=== PATIENT | female | born 1935 | race Caucasian/White ===

== ENCOUNTER 2018-01-16 11:08 | Emergency (ER) | payer MEDICARE, BC ==
[2018-01-16] MEDS ORDERED: Bacitracin Oint 1 GM U/D Packet TOP ONE (11:36)
[2018-01-16] MEDS ORDERED: Diphtheria/Tetanus Toxoids,Adult (Td) 0.5 ML Syringe IM ONE (11:36)
[2018-01-16] MEDS ORDERED: Lidocaine 1% with EPINEPHrine 1:100,000 20 ML MDV INJECT ONE (11:37)
[2018-01-16] MEDS ORDERED: Lidocaine 1% with EPINEPHrine 1:100,000 20 ML MDV ONE (11:39)
--- NOTE | 2018-01-16 11:46 | EDM.PDOC ---
ED HPI GENERAL MEDICAL PROBLEM - General Chief Complaint: Head Injury Stated Complaint: LACERATION TO FOREHEAD Time Seen by Provider: 01/16/18 11:28 - History of Present Illness INITIAL COMMENTS - FREE TEXT/NARRATIVE: HISTORY AND PHYSICAL: History of present illness: The patient is an 82-year-old female who follows in our family practice clinic with Dr. Ayala and has a history of hypertension hypothyroidism and hypercholesterolemia who presents via EMS after she tripped on a curb while trying to go to her dentist today. According to the patient she drove to the dentist and was walking into the dentist when she tripped and fell landing on bilateral knees and her face. She cannot pass out or blackout and initially wanted to continue going to the dentist when she was seen by a bystander who felt she should be evaluated. The patient is unsure of her last tetanus shot and says that she currently has no pain whatsoever even at the lacerations on her face and extremities. The patient denies any knee pain hip pain neck or back pain and has no nausea or abdominal pain chest pain or shortness of breath. She said prior to these events she was in her usual state of health with no systemic complaints of fever chills nausea vomiting chest pain abdominal pain diarrhea or urinary tract symptoms. Review of systems: As per history of present illness and below otherwise all systems reviewed and negative. Past medical history: As per history of present illness and as reviewed below otherwise noncontributory. Surgical history: As per history of present illness and as reviewed below otherwise noncontributory. Social history: No reported history of drug or alcohol abuse. Family history: As per history of present illness and as reviewed below otherwise noncontributory. Physical exam: Gen.: Well-developed thin female who is nontoxic and vital signs have been reviewed by me. Patient moves easily and is alert talkative and interactive. HEENT: Atraumatic except for a superficial abrasion seen on the left forehead and a 3.0 cm laceration above the left eyebrow,, normocephalic, pupils reactive , EOMs intact negative for conjunctival pallor or scleral icterus, mucous membranes moist, throat clear, neck supple, nontender, trachea midline. There are no facial bone deformities tenderness defects or crepitus and there is no midline step-offs tenderness defects of the cervical spine Lungs: Clear to auscultation, breath sounds equal bilaterally, chest nontender. Heart: S1S2, regular rate and rhythm no overt murmurs Abdomen: Soft, nondistended, nontender. Negative for masses or hepatosplenomegaly. Negative for costovertebral tenderness. Pelvis: Stable nontender. There is no lateral hip tenderness Genitourinary: Deferred. Rectal: Deferred. Extremities: The patient has full range of motion of all extremities without any bony defects deformities or tenderness. At the left knee there is a 1.5 x 1.1 area of superficial skin loss/abrasion without bony deformity defects soft tissue swelling or effusion. At the right knee there is a jagged irregular 3.5 cm laceration which extends to the deep subcutaneous tissue. The patient has full range of motion of the right knee and there is no distal or proximal defects deformities or tenderness appreciated. At the left elbow there is a 4.5 x 1.0 oval area of abrasion seen without laceration and there is no deformity tenderness or defects of the elbow or forearm bony architecture. The legs are negative for cords or calf pain. Neurovascular unremarkable. Neuro: Awake, alert, oriented. Cranial nerves II through XII unremarkable. Cerebellum unremarkable. Motor and sensory unremarkable throughout. Exam nonfocal. Back: There are no midline step-offs tenderness defects of the thoracic or lumbar spine and no posterior pelvis or rib tenderness. Diagnostics: CBC CMP UA CT scan of the head EKG Therapeutics: Cleansing of all wounds, bacitracin and local care to the left elbow and left knee where there is only abrasion/skin loss, laceration repair of the right knee and the eyebrow area, tetanus shot, Keflex Procedure note: After all wounds were cleansed by nursing the area at the left eyebrow was prepped and draped in sterile fashion and 1% lidocaine with epinephrine was infused for anesthesia. The wound was explored and no foreign bodies were appreciated. The skin edges were reapproximated using simple interrupted sutures for a total number of #4 sutures of 6-0 nylon. The right knee was prepped and draped in sterile fashion and 1% lidocaine with epinephrine was infused for anesthesia. The wound was explored and no foreign bodies were appreciated and the skin edges were reapproximated as best as possible using simple interrupted sutures for a total number of #5 of 4-0 nylon . The patient is aware of tension in the area of the right knee and dressings were applied to these wounds. The patient was also made aware that the wound is not completely reapproximated on the knee and will require thorough wound care. There were no complications and the patient tolerated the procedure well. The procedures where performed by Malaika York NP. Due to the irregularity and depth of the right knee laceration with the patient' s lack of muscle mass and soft tissue coverage I will give her antibiotics, Keflex. Patient is also aware of her testing results including a BUN of 22 and advised her to drink more fluids. Impression: Simple fall with multiple lacerations of extremities and face and contusions of extremities Definitive disposition and diagnosis as appropriate pending reevaluation and review of above. - Related Data Allergies Allergy/AdvReac Type Severity Reaction Status Date / Time phenytoin sodium Allergy Unknown Verified 03/30/14 08:14 [From Dilantin] phenytoin sodium extended Allergy Unknown Verified 03/30/14 08:14 [From Dilantin] Home Meds: Home Meds Estradiol [Estradiol] 1 mg PO DAILY 01/16/18 [History] Hydrochlorothiazide 25 mg PO DAILY 01/16/18 [History] Levothyroxine 25 mcg PO ACBREAKFAST 01/16/18 [History] Potassium Chloride 20 meq PO DAILY 01/16/18 [History] ED ROS GENERAL - Review of Systems Review Of Systems: ROS reveals no pertinent complaints other than HPI. ED EXAM, HEAD INJURY - Physical Exam Exam: See Below (See dictation) Course - Vital Signs Last Recorded V/S: Last Vital Signs Temp 37.0 C 01/16/18 11:29 Pulse 76 01/16/18 11:29 Resp 20 01/16/18 11:29 BP 152/70 H 01/16/18 11:29 Pulse Ox 97 01/16/18 11:29 - Orders/Labs/Meds Orders: Active Orders 24 hr Category Date Time Status Communication Order [RC] STAT Care 01/16/18 12:49 Active EKG Documentation Completion [RC] STAT Care 01/16/18 11:37 Active Vaccines to be Administered [RC] PER UNIT ROUTINE Care 01/16/18 11:36 Active Labs: Laboratory Tests 01/16/18 01/16/18 01/16/18 Range/Units 11:48 11:48 12:53 WBC 6.61 (4.0-11.0) K/uL RBC 4.32 (4.30-5.90) M/uL Hgb 11.9 L (12.0-16.0) g/dL Hct 37.1 (36.0-46.0) % MCV 85.9 (80.0-98.0) fL MCH 27.5 (27.0-32.0) pg MCHC 32.1 (31.0-37.0) g/dL RDW Std Deviation 44.6 (28.0-62.0) fl RDW Coeff of Sondra 14 (11.0-15.0) % Plt Count 204 (150-400) K/uL MPV 10.10 (7.40-12.00) fL Neut % (Auto) 59.4 (48.0-80.0) % Lymph % (Auto) 25.4 (16.0-40.0) % [place]manuel % (Auto) 12.6 (0.0-15.0) % Eos % (Auto) 1.8 (0.0-7.0) % Baso % (Auto) 0.8 (0.0-1.5) % Neut # (Auto) 3.9 (1.4-5.7) K/uL Lymph # (Auto) 1.7 (0.6-2.4) K/uL [place] # (Auto) 0.8 (0.0-0.8) K/uL Eos # (Auto) 0.1 (0.0-0.7) K/uL Baso # (Auto) 0.1 (0.0-0.1) K/uL Nucleated RBC % 0.0 /100WBC Nucleated RBCs # 0 K/uL Sodium 143 (136-145) mmol/L Potassium 3.9 (3.5-5.1) mmol/L Chloride 106 (98-107) mmol/L Carbon Dioxide 31.0 (21.0-32.0) mmol/L BUN 22 H (7.0-18.0) mg/dL Creatinine 0.9 (0.6-1.0) mg/dL Est Cr Clr Drug Dosing TNP Estimated GFR (MDRD) 59.7 ml/min Glucose 73 L (74-106) mg/dL Calcium 9.0 (8.5-10.1) mg/dL Total Bilirubin 0.4 (0.2-1.0) mg/dL AST 23 (15-37) U/L ALT 26 (14-63) U/L Alkaline Phosphatase 52 (46-116) U/L Total Protein 6.4 (6.4-8.2) g/dL Albumin 3.3 L (3.4-5.0) g/dL Globulin 3.1 (2.0-3.5) g/dL Albumin/Globulin Ratio 1.1 L (1.3-2.8) Urine Color YELLOW Urine Appearance CLEAR Urine pH 5.5 (5.0-8.0) Ur Specific [place] 1.010 (1.001-1.035) Urine Protein NEGATIVE (NEGATIVE) mg/dL Urine Glucose (UA) NEGATIVE (NEGATIVE) mg/dL Urine Ketones NEGATIVE (NEGATIVE) mg/dL Urine Occult Blood NEGATIVE (NEGATIVE) Urine Nitrite NEGATIVE (NEGATIVE) Urine Bilirubin NEGATIVE (NEGATIVE) Urine Urobilinogen 0.2 (<2.0) EU/dL Ur Leukocyte Esterase NEGATIVE (NEGATIVE) Urine RBC 0-1 (0-2/HPF) Urine WBC 0-1 (0-5/HPF) Ur Epithelial Cells RARE (NONE-FEW) Urine Bacteria RARE (NEGATIVE) Meds: Medications Discontinued Medications Generic Name Dose Route Start Last Admin Trade Name Freq PRN Reason Stop Dose Admin Bacitracin 6 dose 01/16/18 11:36 01/16/18 11:51 Bacitracin Oint 1 Gm TOP 01/16/18 11:37 6 dose ONETIME ONE Administration Cephalexin 500 mg 01/16/18 11:50 01/16/18 12:01 Keflex PO 01/16/18 11:51 500 mg ONETIME ONE Administration Lidocaine/Epinephrine 20 ml 01/16/18 11:37 01/16/18 13:03 Xylocaine 1% With Epinephrine 1:100,000 INJECT 01/16/18 11:38 20 ml ONETIME ONE Administration Lidocaine/Epinephrine Confirm 01/16/18 11:39 01/16/18 11:52 Xylocaine 1% With Epinephrine 1:100,000 Administered 01/16/18 11:40 Not Given Dose 20 ml .ROUTE .STK-MED ONE Tetanus/Diphtheria Toxoids 0.5 ml 01/16/18 11:36 01/16/18 11:51 Tenivac IM 01/16/18 11:37 0.5 ml .ONCE ONE Administration Departure - Departure Time of Disposition: 13:45 Disposition: Home, Self-Care 01 Condition: Good Clinical Impression: Abrasion, multiple sites Fall Qualifiers: Encounter type: initial encounter Qualified Code(s): W19.XXXA - Unspecified fall, initial encounter Facial laceration Qualifiers: Encounter type: initial encounter Qualified Code(s): S01.81XA - Laceration without foreign body of other part of head, initial encounter Laceration of right knee Qualifiers: Encounter type: initial encounter Qualified Code(s): S81.011A - Laceration without foreign body, right knee, initial encounter - Discharge Information Forms: ED Department Discharge Additional Instructions: The following information is given to patients seen in the emergency department who are being discharged to home. This information is to outline your options for follow-up care. We provide all patients seen in our emergency department with a follow-up referral. The need for follow-up, as well as the timing and circumstances, are variable depending upon the specifics of your emergency department visit. If you don't have a primary care physician on staff, we will provide you with a referral. We always advise you to contact your personal physician following an emergency department visit to inform them of the circumstance of the visit and for follow-up with them and/or the need for any referrals to a consulting specialist. The emergency department will also refer you to a specialist when appropriate. This referral assures that you have the opportunity for followup care with a specialist. All of these measure are taken in an effort to provide you with optimal care, which includes your followup. Under all circumstances we always encourage you to contact your private physician who remains a resource for coordinating your care. When calling for followup care, please make the office aware that this follow-up is from your recent emergency room visit. If for any reason you are refused follow-up, please contact the [facility] emergency department at and ask to speak to the emergency department charge nurse. [facility] Primary care- Internal Medicine and Family [address] [address] Use [id number] Tylenol for aches and pains and apply ice to areas of soreness. Please cleanse all the wounds with mild soap and water pat dry and apply bacitracin or Neosporin. Please do not use peroxide or alcohol and any of the wounds. The wounds that have sutures in them will need suture removal with the facial laceration at 7 days and the knee laceration at 10-14 days. The sutures can be removed either here in the emergency department or with your provider in the clinic. These try to reduce stress on the knee wound by avoiding excessive walking and activities and bending of the knee. Return to ER sooner as needed and as discussed. Please push more fluids as we discussed - My Orders Last 24 Hours: My Active Orders 01/16/18 11:36 Vaccines to be Administered [RC] PER UNIT ROUTINE 01/16/18 11:37 EKG Documentation Completion [RC] STAT 01/16/18 12:49 Communication Order [RC] STAT - Assessment/Plan Last 24 Hours: My Active Orders 01/16/18 11:36 Vaccines to be Administered [RC] PER UNIT ROUTINE 01/16/18 11:37 EKG Documentation Completion [RC] STAT 01/16/18 12:49 Communication Order [RC] STAT
[2018-01-16] MEDS ORDERED: Cephalexin 500 MG Cap PO ONE (11:50)
[2018-01-16 12:23] LABS: CHLORIDE,CL 106 mmol/L (98-107); SODIUM,NA 143 mmol/L (136-145)
--- NOTE | 2018-01-16 13:18 | CT ---
EXAMINATION: Non contrast CT head. Coronal and sagittal reformats. HISTORY: Pain FINDINGS: No evidence of intra or extra axial hemorrhage, mass, midline shift, hydrocephalus or edema. Mild to moderate generalized atrophy. Mild subcortical and periventricular white matter hypodensities are no christian. No hypoattenuation changes in the major vascular territories to suggest acute infarct. No abnormal intracranial calcifications are detected. No evidence of substantial vascular calcificat ions. Paranasal sinuses and mastoid air cells are well aerated without substantial findings. Orbits and gl obes are symmetric. Pituitary fossa appears unremarkable. Right frontal craniotomy changes are noted. No evidence of skull fracture. IMPRESSION: 1. No acute intracranial findings. 2. Mild to moderate generalized atrophy with mild small vessel ischemic changes.
== END 2018-01-16 14:05 | disposition home or self-care (01) ==
LOC: MW.ED 11:08
DX: S01.81XA Laceration without foreign body of other part of head, initial encounter (principal); S81.011A Laceration without foreign body, right knee, initial encounter; S80.212A Abrasion, left knee, initial encounter; S50.312A Abrasion of left elbow, initial encounter; E03.9 Hypothyroidism, unspecified; I10 Essential (primary) hypertension; E78.00 Pure hypercholesterolemia, unspecified; Z88.8 Allergy status to other drugs, medicaments and biological substances; Z23 Encounter for immunization; Z79.899 Other long term (current) drug therapy; W01.0XXA Fall on same level from slipping, tripping and stumbling without subsequent striking against object, initial encounter
CPT/HCPCS: 12002; 12013; 36415; 70450; 80053; 81001; 85025; 90471; 90714; 93005; 99284; A9270

== ENCOUNTER 2019-02-21 14:37 | Emergency (ER) | payer MEDICARE, BC ==
[2019-02-21] MEDS ORDERED: Sodium Chloride 0.9% 1,000 ML IV ONE (15:52)
[2019-02-21] MEDS ORDERED: Sodium Chloride 0.9% 10 ML Syringe FLUSH PRN (15:53)
[2019-02-21] MEDS ORDERED: Sodium Chloride 0.9% 2.5 ML Syringe FLUSH PRN (15:53)
--- NOTE | 2019-02-21 16:25 | EDM.PDOC ---
ED HPI GENERAL MEDICAL PROBLEM - General Chief Complaint: Respiratory Problem Stated Complaint: UPPER RESP. INFECTION Time Seen by Provider: 02/21/19 15:53 Source of Information: Reports: Patient History Limitations: Reports: No Limitations - History of Present Illness INITIAL COMMENTS - FREE TEXT/NARRATIVE: History of present illness: []Patient started having a dry cough, fevers 101 yesterday. Denies any chest pain, nausea, vomiting or abdominal pain. Review of systems: As per history of present illness and below otherwise all systems reviewed and negative. Past medical history: As per history of present illness and as reviewed below otherwise noncontributory. Surgical history: As per history of present illness and as reviewed below otherwise noncontributory. Social history: No reported history of drug or alcohol abuse. Family history: As per history of present illness and as reviewed below otherwise noncontributory. Physical exam: General: Well developed, well nourished in NAD HEENT: Atraumatic, normocephalic, pupils reactive, negative for conjunctival pallor or scleral icterus, mucous membranes moist, throat clear, neck supple, nontender, trachea midline. Lungs: Clear to auscultation, breath sounds equal bilaterally, chest nontender. Heart: S1S2, regular, negative for clicks, rubs, or JVD. Abdomen: NABS, Soft, nondistended, nontender. Negative for masses or hepatosplenomegaly. Negative for costovertebral tenderness. Pelvis: Stable nontender. Genitourinary: Deferred. Rectal: Deferred. Extremities: Atraumatic, negative for cords or calf pain. Neurovascular unremarkable. Neuro: Awake, alert, oriented. Cranial nerves II through XII unremarkable. Cerebellum unremarkable. Motor and sensory unremarkable throughout. Exam nonfocal. Skin:warm and dry Diagnostics: CBC, blood culture, chemistry, chest x-ray all negative Therapeutics: IV hydrated ED Course: Improved Impression: Acute bronchitis Prescriptions: Zithromax Plan: Take meds as directed, follow up with your primary care physician, return to ER if symptoms worsen or change. Definitive disposition and diagnosis as appropriate pending reevaluation and review of above. Throat Pain Score (Numeric/FACES): 3 - Related Data Allergies Allergy/AdvReac Type Severity Reaction Status Date / Time phenytoin sodium Allergy Unknown Verified 03/30/14 08:14 [From Dilantin] phenytoin sodium extended Allergy Unknown Verified 03/30/14 08:14 [From Dilantin] Home Meds: Home Meds Levothyroxine 25 mcg PO ACBREAKFAST 01/16/18 [History] Potassium Chloride 20 meq PO DAILY 01/16/18 [History] hydroCHLOROthiazide [Hydrochlorothiazide] 25 mg PO DAILY 01/16/18 [History] Azithromycin [Zithromax] 250 mg PO DAILY #6 tab 02/21/19 [Rx] Past Medical History Cardiovascular History: Reports: High Cholesterol, Hypertension - Infectious Disease History Infectious Disease History: Reports: Chicken Pox, Measles, Mumps Social & Family History - Family History Family Medical History: Noncontributory - Tobacco Use Smoking Status *Q: Never Smoker - Caffeine Use Caffeine Use: Reports: Coffee, Soda, Tea - Recreational Drug Use Recreational Drug Use: No ED ROS GENERAL - Review of Systems Review Of Systems: ROS reveals no pertinent complaints other than HPI. ED EXAM, GENERAL - Physical Exam Exam: See Below (See history of present illness) Course - Vital Signs Last Recorded V/S: Last Vital Signs Temp 98.9 F 02/21/19 14:54 Pulse 89 02/21/19 14:54 Resp 17 02/21/19 14:54 BP 135/91 H 02/21/19 14:54 Pulse Ox 96 02/21/19 14:54 - Orders/Labs/Meds Orders: Active Orders 24 hr Category Date Time Status CULTURE BLOOD [BC] Stat Lab 02/21/19 16:10 Received CULTURE BLOOD [BC] Stat Lab 02/21/19 16:25 Received INFLUENZA A+B AG SCREEN [RM] Stat Lab 02/21/19 16:27 Ordered Sodium Chloride 0.9% [Saline Flush] Med 02/21/19 15:53 Active 10 ml FLUSH ASDIRECTED PRN Sodium Chloride 0.9% [Saline Flush] Med 02/21/19 15:53 Active 2.5 ml FLUSH ASDIRECTED PRN Blood Culture x2 Reflex Set [OM.PC] Stat Oth 02/21/19 15:52 Ordered Saline Lock Insert [OM.PC] Stat Oth 02/21/19 15:52 Ordered Medication Orders Sodium Chloride (Saline Flush) 10 ml FLUSH ASDIRECTED PRN PRN Reason: Keep Vein Open Sodium Chloride (Saline Flush) 2.5 ml FLUSH ASDIRECTED PRN PRN Reason: Keep Vein Open Labs: Laboratory Tests 02/21/19 02/21/19 02/21/19 Range/Units 16:10 16:10 16:10 WBC 8.11 (4.0-11.0) K/uL RBC 4.11 L (4.30-5.90) M/uL Hgb 11.5 L (12.0-16.0) g/dL Hct 34.9 L (36.0-46.0) % MCV 84.9 (80.0-98.0) fL MCH 28.0 (27.0-32.0) pg MCHC 33.0 (31.0-37.0) g/dL RDW Std Deviation 44.5 (28.0-62.0) fl RDW Coeff of Sondra 14 (11.0-15.0) % Plt Count 190 (150-400) K/uL MPV 9.60 (7.40-12.00) fL Neut % (Auto) 72.9 (48.0-80.0) % Lymph % (Auto) 13.3 L (16.0-40.0) % [place] % (Auto) 13.2 (0.0-15.0) % Eos % (Auto) 0.4 (0.0-7.0) % Baso % (Auto) 0.2 (0.0-1.5) % Neut # (Auto) 5.9 H (1.4-5.7) K/uL Lymph # (Auto) 1.1 (0.6-2.4) K/uL [place] # (Auto) 1.1 H (0.0-0.8) K/uL Eos # (Auto) 0.0 (0.0-0.7) K/uL Baso # (Auto) 0.0 (0.0-0.1) K/uL Nucleated RBC % 0.0 /100WBC Nucleated RBCs # 0 K/uL Lactate 0.8 (0.20-2.00) mmol/L Sodium 137 (136-145) mmol/L Potassium 3.9 (3.5-5.1) mmol/L Chloride 101 (98-107) mmol/L Carbon Dioxide 25.3 (21.0-32.0) mmol/L BUN 27 H (7.0-18.0) mg/dL Creatinine 1.3 H (0.6-1.0) mg/dL Est Cr Clr Drug Dosing 21.52 mL/min Estimated GFR (MDRD) 38.9 ml/min Glucose 123 H (74-106) mg/dL Calcium 9.3 (8.5-10.1) mg/dL Total Bilirubin 0.5 (0.2-1.0) mg/dL AST 25 (15-37) IU/L ALT 26 (14-63) IU/L Alkaline Phosphatase 47 (46-116) U/L Total Protein 7.0 (6.4-8.2) g/dL Albumin 3.4 (3.4-5.0) g/dL Globulin 3.6 (2.6-4.0) g/dL Albumin/Globulin Ratio 0.9 (0.9-1.6) Meds: Medications Generic Name Dose Route Start Last Admin Trade Name Freq PRN Reason Stop Dose Admin Sodium Chloride 10 ml 02/21/19 15:53 Saline Flush FLUSH ASDIRECTED PRN Keep Vein Open Sodium Chloride 2.5 ml 02/21/19 15:53 Saline Flush FLUSH ASDIRECTED PRN Keep Vein Open Discontinued Medications Generic Name Dose Route Start Last Admin Trade Name Freq PRN Reason Stop Dose Admin Sodium Chloride 1,000 mls @ 999 mls/hr 02/21/19 15:52 02/21/19 16:07 Normal Saline IV 02/21/19 16:52 999 mls/hr .Bolus ONE Administration Departure - Departure Time of Disposition: 17:28 Disposition: Home, Self-Care 01 Condition: Good Clinical Impression: Acute bronchitis Qualifiers: Bronchitis organism: unspecified organism Qualified Code(s): J20.9 - Acute bronchitis, unspecified - Discharge Information *PRESCRIPTION DRUG MONITORING PROGRAM REVIEWED*: No *COPY OF PRESCRIPTION DRUG MONITORING REPORT IN PATIENT KAN: No Prescriptions: Azithromycin [Zithromax] 250 mg PO DAILY #6 tab Referrals: PCP,Unknown [Primary Care Provider] - Forms: ED Department Discharge Additional Instructions: The following information is given to patients seen in the emergency department who are being discharged to home. This information is to outline your options for follow-up care. We provide all patients seen in our emergency department with a follow-up referral. The need for follow-up, as well as the timing and circumstances, are variable depending upon the specifics of your emergency department visit. If you don't have a primary care physician on staff, we will provide you with a referral. We always advise you to contact your personal physician following an emergency department visit to inform them of the circumstance of the visit and for follow-up with them and/or the need for any referrals to a consulting specialist. The emergency department will also refer you to a specialist when appropriate. This referral assures that you have the opportunity for follow-up care with a specialist. All of these measure are taken in an effort to provide you with optimal care, which includes your follow-up. Under all circumstances we always encourage you to contact your private physician who remains a resource for coordinating your care. When calling for follow-up care, please make the office aware that this follow-up is from your recent emergency room visit. If for any reason you are refused follow-up, please contact the [facility] Emergency Department at and asked to speak to the emergency department charge nurse. Take meds as directed, follow up with your primary care physician, return to ER if symptoms worsen or change. [facility] Primary Care [address] [place] [address] - My Orders Last 24 Hours: My Active Orders 02/21/19 15:52 Blood Culture x2 Reflex Set [OM.PC] Stat Saline Lock Insert [OM.PC] Stat 02/21/19 15:53 Sodium Chloride 0.9% [Saline Flush] 10 ml FLUSH ASDIRECTED PRN Sodium Chloride 0.9% [Saline Flush] 2.5 ml FLUSH ASDIRECTED PRN 02/21/19 16:10 CULTURE BLOOD [BC] Stat 02/21/19 16:25 CULTURE BLOOD [BC] Stat 02/21/19 16:27 INFLUENZA A+B AG SCREEN [RM] Stat - Assessment/Plan Last 24 Hours: My Active Orders 02/21/19 15:52 Blood Culture x2 Reflex Set [OM.PC] Stat Saline Lock Insert [OM.PC] Stat 02/21/19 15:53 Sodium Chloride 0.9% [Saline Flush] 10 ml FLUSH ASDIRECTED PRN Sodium Chloride 0.9% [Saline Flush] 2.5 ml FLUSH ASDIRECTED PRN 02/21/19 16:10 CULTURE BLOOD [BC] Stat 02/21/19 16:25 CULTURE BLOOD [BC] Stat 02/21/19 16:27 INFLUENZA A+B AG SCREEN [] Stat
--- NOTE | 2019-02-21 16:40 | CR ---
HISTORY: Fever, cough. Pain. Shortness of breath. TECHNIQUE: Two-view chest. COMPARISON: None. FINDINGS: No airspace consolidation. No pleural effusion or pneumothorax. Pulmonary vasculature and cardiomediastinal silhouette are within normal limits. Mild degenerative changes of the spine. IMPRESSION: No cardiopulmonary abnormality. Dictated by Shmuel Cespedes MD @ Feb 21 2019 4:35PM Signed by Dr. Shmuel Cespedes @ Feb 21 2019 4:38PM
== END 2019-02-21 17:43 | disposition home or self-care (01) ==
LOC: MW.ED 14:37
DX: J20.9 Acute bronchitis, unspecified (principal); I10 Essential (primary) hypertension; Z88.8 Allergy status to other drugs, medicaments and biological substances
CPT/HCPCS: 36415; 71046; 80053; 83605; 85025; 87040; 87804; 96360; 99284; J7040

== ENCOUNTER 2019-10-01 11:33 | Emergency (ER) | payer MEDICARE, BC ==
--- NOTE | 2019-10-01 13:26 | CR ---
EXAM DATE: 10/01/19 PATIENT'S AGE: 84 Right ankle: Three views of the right ankle were obtained. Comparison: No prior ankle study. Ankle mortise is symmetric. Vascular calcification is noted. Very minimal plantar spur is seen. No fracture or other bony abnormality is seen. Impression: 1. Findings as noted above. 2. Nothing acute is appreciated on right ankle exam. Diagnostic code #2 Report Signed by Proxy. JOSE J
--- NOTE | 2019-10-01 13:38 | CR ---
EXAM DATE: 10/01/19 PATIENT'S AGE: 84 Right tibia and fibula: AP and lateral views of the right tibia and fibula were obtained. Comparison: No prior tibia or fibula exam. Vascular calcification is seen. No fracture or other bony abnormality is seen. Impression: 1. Nothing acute is seen on two view right tibia and fibula exam. Diagnostic code #1 Report Signed by Proxy. JOSE J
[2019-10-01 13:41] LABS: CARBON DIOXIDE,CO2 27.4 mmol/L (21.0-32.0); POTASSIUM,K 4.5 mmol/L (3.5-5.1)
--- NOTE | 2019-10-01 14:05 | EDM.PDOC ---
ED HPI GENERAL MEDICAL PROBLEM - General Chief Complaint: Lower Extremity Injury/Pain Stated Complaint: RIGHT ANKLE SWOLLEN Time Seen by Provider: 10/01/19 12:36 Source of Information: Reports: Patient History Limitations: Reports: No Limitations - History of Present Illness INITIAL COMMENTS - FREE TEXT/NARRATIVE: HISTORY AND PHYSICAL: History of present illness: Patient is an 84-year-old female presents to the ED today with concern of right lower leg possible infection over the past 3-4 days. Patient states she woke up in bed and noticed there was an area on the back of her leg that was open and he was surrounded by redness. Patient states she has not taken anything for her symptoms. Patient denies any trauma or injury of the leg. Patient denies any other symptoms or concerns. Patient denies fever, chills, chest pain, shortness of breath, or cough. Denies headache, neck stiff ness, change in vision, syncope, or near syncope. Denies nausea, vomiting, abdominal pain, diarrhea, constipation, or dysuria. Has not noted any blood in urine or stool. Patient has been eating and drinking appropriately. Review of systems: As per history of present illness and below otherwise all systems reviewed and negative. Past medical history: As per history of present illness and as reviewed below otherwise noncontributory. Surgical history: As per history of present illness and as reviewed below otherwise noncontributory. Social history: See social history for further information Family history: As per history of present illness and as reviewed below otherwise noncontributory. Physical exam: General: Patient is alert, oriented, and in no acute distress. Patient sitting comfortably on exam table. HEENT: Atraumatic, normocephalic, pupils equal and reactive bilaterally, negative for conjunctival pallor or scleral icterus, mucous membranes moist, TMs normal bilaterally, throat clear, neck supple, nontender, trachea midline. No drooling or trismus noted. No meningeal signs. No hot potato voice noted. Lungs: Clear to auscultation, breath sounds equal bilaterally, chest nontender. Heart: S1S2, regular rate and rhythm without overt murmur Abdomen: Soft, nondistended, nontender. Negative for masses or hepatosplenomegaly. Negative for costovertebral tenderness. Pelvis: Stable nontender. Genitourinary: Deferred. Rectal: Deferred. Skin: Warm, dry. There is a 1cm skin tear of the posterior lower right calf with surrounding erythema suggestive of cellulitis. The area is outlined with surgical pen. Extremities: see skin. Otherwise, negative for cords or calf pain. Neurovascular unremarkable. Cells patient posterior tibial pulses Neuro: Awake, alert, oriented. Cranial nerves II through XII unremarkable. Cerebellum unremarkable. Motor and sensory unremarkable throughout. Exam nonfocal. Notes: Dr. Osorio directly involved in patient care. Patient states will address tetanus with her PCP as she thinks she is up to date and will come back for tetanus if she is not up to date. Voices understanding and is agreeable to plan of care. Denies any further questions or concerns at this time. Diagnostics: CBC, CMP, UA, lactate, blood cultures x 2, tib/fib/ankle XR Therapeutics: patient declines tetanus at this time Prescription: Bactrim DS Impression: Cellulitis, right leg Plan: 1. Take medication as prescribed. You can also use Tylenol as directed for pain and discomfort. 2. Follow-up with your primary care provider as discussed. Return to the ED as needed and as discussed. 3. Return to the ED in 24-48 hours to have the area reevaluated as discussed. Definitive disposition and diagnosis as appropriate pending reevaluation and review of above. right ankle Pain Score (Numeric/FACES): 1 - Related Data Allergies Allergy/AdvReac Type Severity Reaction Status Date / Time phenytoin sodium Allergy Unknown Verified 10/01/19 12:33 [From Dilantin] phenytoin sodium extended Allergy Unknown Verified 10/01/19 12:33 [From Dilantin] Home Meds: Home Meds Levothyroxine 25 mcg PO ACBREAKFAST 01/16/18 [History] Potassium Chloride 20 meq PO DAILY 01/16/18 [History] hydroCHLOROthiazide [Hydrochlorothiazide] 25 mg PO DAILY 01/16/18 [History] Simvastatin [Zocor] 1 tab PO DAILY 10/01/19 [History] Past Medical History Cardiovascular History: Reports: High Cholesterol, Hypertension - Infectious Disease History Infectious Disease History: Reports: Chicken Pox, Measles, Mumps Social & Family History - Family History Family Medical History: Noncontributory - Tobacco Use Smoking Status *Q: Unknown Ever Smoked - Caffeine Use Caffeine Use: Reports: Coffee, Soda, Tea - Recreational Drug Use Recreational Drug Use: No Review of Systems - Review of Systems Review Of Systems: Comprehensive ROS is negative, except as noted in HPI. ED EXAM, GENERAL - Physical Exam Exam: See Below (see dictation) Course - Vital Signs Last Recorded V/S: Last Vital Signs Temp 96.5 F 10/01/19 12:29 Pulse 74 10/01/19 12:29 Resp 18 10/01/19 12:29 BP 140/40 L 10/01/19 12:29 Pulse Ox 97 10/01/19 12:29 - Orders/Labs/Meds Orders: Active Orders 24 hr Category Date Time Status CULTURE BLOOD [BC] Stat Lab 10/01/19 13:05 Received CULTURE BLOOD [BC] Stat Lab 10/01/19 13:15 Received UA RFX BREA AND CULT IF INDIC [URIN] Stat Lab 10/01/19 12:51 Ordered Blood Culture x2 Reflex Set [OM.PC] Stat Oth 10/01/19 12:51 Ordered Labs: Laboratory Tests 10/01/19 10/01/19 10/01/19 Range/Units 13:05 13:05 13:05 WBC 10.48 (4.0-11.0) K/uL RBC 4.17 L (4.30-5.90) M/uL Hgb 11.4 L (12.0-16.0) g/dL Hct 35.5 L (36.0-46.0) % MCV 85.1 (80.0-98.0) fL MCH 27.3 (27.0-32.0) pg MCHC 32.1 (31.0-37.0) g/dL RDW Std Deviation 44.1 (28.0-62.0) fl RDW Coeff of Sondra 14 (11.0-15.0) % Plt Count 226 (150-400) K/uL MPV 10.20 (7.40-12.00) fL Neut % (Auto) 57.5 (48.0-80.0) % Lymph % (Auto) 24.5 (16.0-40.0) % Sunflower % (Auto) 14.3 (0.0-15.0) % Eos % (Auto) 3.2 (0.0-7.0) % Baso % (Auto) 0.5 (0.0-1.5) % Neut # (Auto) 6.0 H (1.4-5.7) K/uL Lymph # (Auto) 2.6 H (0.6-2.4) K/uL Sunflower # (Auto) 1.5 H (0.0-0.8) K/uL Eos # (Auto) 0.3 (0.0-0.7) K/uL Baso # (Auto) 0.1 (0.0-0.1) K/uL Nucleated RBC % 0.0 /100WBC Nucleated RBCs # 0 K/uL Lactate 0.8 (0.20-2.00) mmol/L Sodium 140 (136-145) mmol/L Potassium 4.5 (3.5-5.1) mmol/L Chloride 104 (98-107) mmol/L Carbon Dioxide 27.4 (21.0-32.0) mmol/L BUN 25 H (7.0-18.0) mg/dL Creatinine 1.1 H (0.6-1.0) mg/dL Est Cr Clr Drug Dosing 26.02 mL/min Estimated GFR (MDRD) 47.1 ml/min Glucose 91 (74-106) mg/dL Calcium 9.1 (8.5-10.1) mg/dL Total Bilirubin 0.5 (0.2-1.0) mg/dL AST 24 (15-37) IU/L ALT 17 (14-63) IU/L Alkaline Phosphatase 70 (46-116) U/L Total Protein 7.4 (6.4-8.2) g/dL Albumin 3.7 (3.4-5.0) g/dL Globulin 3.7 (2.6-4.0) g/dL Albumin/Globulin Ratio 1.0 (0.9-1.6) Departure - Departure Time of Disposition: 14:04 Disposition: Home, Self-Care 01 Clinical Impression: Cellulitis Qualifiers: Site of cellulitis: extremity Site of cellulitis of extremity: lower extremity Laterality: right Qualified Code(s): L03.115 - Cellulitis of right lower limb - Discharge Information Instructions: Cellulitis, Adult, [id number] Referrals: Key Menchaca MD [Primary Care Provider] - Forms: ED Department Discharge Additional Instructions: The following information is given to patients seen in the emergency department who are being discharged to home. This information is to outline your options for follow-up care. We provide all patients seen in our emergency department with a follow-up referral. The need for follow-up, as well as the timing and circumstances, are variable depending upon the specifics of your emergency department visit. If you don't have a primary care physician on staff, we will provide you with a referral. We always advise you to contact your personal physician following an emergency department visit to inform them of the circumstance of the visit and for follow-up with them and/or the need for any referrals to a consulting specialist. The emergency department will also refer you to a specialist when appropriate. This referral assures that you have the opportunity for follow-up care with a specialist. All of these measure are taken in an effort to provide you with optimal care, which includes your follow-up. Under all circumstances we always encourage you to contact your private physician who remains a resource for coordinating your care. When calling for follow-up care, please make the office aware that this follow-up is from your recent emergency room visit. If for any reason you are refused follow-up, please contact the [facility] Emergency Department at and asked to speak to the emergency department charge nurse. [facility] [address] [place] [address] [place] [address] 1. Take medication as prescribed. You can also use Tylenol as directed for pain and discomfort. 2. Follow-up with your primary care provider as discussed. Return to the ED as needed and as discussed. 3. Return to the ED in 24-48 hours to have the area reevaluated as discussed. - My Orders Last 24 Hours: My Active Orders 10/01/19 12:51 UA RFX BREA AND CULT IF INDIC [URIN] Stat Blood Culture x2 Reflex Set [OM.PC] Stat 10/01/19 13:05 CULTURE BLOOD [BC] Stat 10/01/19 13:15 CULTURE BLOOD [BC] Stat - Assessment/Plan Last 24 Hours: My Active Orders 10/01/19 12:51 UA RFX BREA AND CULT IF INDIC [URIN] Stat Blood Culture x2 Reflex Set [OM.PC] Stat 10/01/19 13:05 CULTURE BLOOD [BC] Stat 10/01/19 13:15 CULTURE BLOOD [BC] Stat
== END 2019-10-01 14:21 | disposition home or self-care (01) ==
LOC: MW.ED 11:33
DX: L03.115 Cellulitis of right lower limb (principal); I10 Essential (primary) hypertension; E78.00 Pure hypercholesterolemia, unspecified; Z88.8 Allergy status to other drugs, medicaments and biological substances; Z79.899 Other long term (current) drug therapy
CPT/HCPCS: 36415; 73590-26-RT; 73590-RT; 73610-26-RT; 73610-RT; 80053; 83605; 85025; 87040; 99283; 99283-25

== ENCOUNTER 2020-06-08 13:59 | Emergency (ER) | payer MEDICARE, BC ==
--- NOTE | 2020-06-08 14:24 | EDM.PDOC ---
ED HPI GENERAL MEDICAL PROBLEM - General Chief Complaint: Upper Extremity Injury/Pain Stated Complaint: FELL Time Seen by Provider: 06/08/20 14:09 Source of Information: Reports: Patient, EMS - History of Present Illness INITIAL COMMENTS - FREE TEXT/NARRATIVE: History of present illness: 85-year-old female brought by EMS for fall with head injury. Apparently the patient was at a car dealership, on the steps when she miscalculated and fell, striking her face and both hands and left elbow. Denies any pain at this time other than in her hands and elbow where there are several skin tears and wounds. She is uncertain if she is on any blood thinners. Therefore she was activated as a trauma alert in case of potential head injury with blood thinner. The nurses called her pharmacy and verified that she is not currently taking any anticoagulation. No loss of consciousness. Patient does report that she is fully up-to-date with her tetanus shot. After resting and comforting and observation in the ER, she was able to clearly state that she is not on any anticoagulation including not on any aspirin. Review of systems: As per history of present illness and below otherwise all systems reviewed and negative. Past medical history: As per history of present illness and as reviewed below otherwise noncontributory. Surgical history: As per history of present illness and as reviewed below otherwise noncontributory. Social history: No reported history of drug or alcohol abuse. No tobacco Family history: As per history of present illness and as reviewed below otherwise noncontributory. Physical exam: GEN: no acute distress, well appearing HEENT: Ecchymosis over forehead, superficial abrasion left forehead, normocephalic, mucous membranes moist, mucous membranes moist with no blood in the nasal or oropharynx. Neck: supple, nontender, trachea midline. C-collar placed by EMS prior to arrival. C-collar maintained due to signs of head injury Lungs: No respiratory distress. No chest wall tenderness. Heart: RRR Abdomen: Soft, nondistended, nontender. No signs of abdominal trauma, no ecchymosis. Back: nontender Extremities: Multiple abrasions over both hands and left elbow. There is a triangular laceration 4 cm total with a flap over the palmar surface of the right hand that has gravel in place. There is a several additional lacerations and abrasions over the left hand and a 3 cm laceration of the left elbow that is moderately deep. Multiple skin flaps and skin tears of the left forearm. All bleeding well controlled by dressings that had previously been placed by EMS. Neurovascularly intact. Significant contamination with dirt and gravel in all skin tears, skin flaps and lacerations. Pelvis stable. Lower extremities with full range of motion. Some ecchymosis left buchanan with mild tenderness. Otherwise no bony tenderness and full range of motion. Neuro: Awake, alert, slightly confused about her medication list, however otherwise alert and mentally clear. Neuro Exam nonfocal. Skin: warm, dry, Ultiva lacerations abrasions and ecchymoses as above Diagnostics: [] Therapeutics: [] MDM: Impression: [] Plan: [] Definitive disposition and diagnosis as appropriate pending reevaluation and review of above. - Related Data Allergies Allergy/AdvReac Type Severity Reaction Status Date / Time phenytoin sodium Allergy Unknown Verified 06/08/20 14:02 [From Dilantin] phenytoin sodium extended Allergy Unknown Verified 06/08/20 14:02 [From Dilantin] Home Meds: Home Meds Levothyroxine 25 mcg PO ACBREAKFAST 01/16/18 [History] Potassium Chloride 20 meq PO DAILY 01/16/18 [History] hydroCHLOROthiazide [Hydrochlorothiazide] 25 mg PO DAILY 01/16/18 [History] Simvastatin [Zocor] 1 tab PO DAILY 10/01/19 [History] cephALEXin [Keflex] 1,000 mg PO BID #40 cap 06/08/20 [Rx] Past Medical History Cardiovascular History: Reports: High Cholesterol, Hypertension - Infectious Disease History Infectious Disease History: Reports: None Social & Family History - Family History Family Medical History: Noncontributory - Tobacco Use Smoking Status *Q: Unknown Ever Smoked - Caffeine Use Caffeine Use: Reports: Coffee, Soda, Tea Review of Systems - Review of Systems Review Of Systems: See Below (See HPI) ED EXAM, GENERAL - Physical Exam Exam: See Below (See HPI) ED TRAUMA EXTREMITY PROCEDURES - Laceration/Wound Repair Right Hand Lac/Wound Length In cm: 4 Appearance: Subcutaneous, Stellate, Irregular, Moderately Contaminated, Heavily Contaminated Distal NVT: Neuro & Vascular Intact, No Tendon Injury Anesthetic Type: Local Local Anesthesia - Lidocaine (Xylocaine): 1% Plain Local Anesthetic Volume: 2cc Skin Prep: Providone-Iodine (Betadine), Saline Saline Irrigation (cc's): 200 Exploration/Debridement/Repair: Wound Explored, In a Bloodless Field, Explored to Base, Moderate Debridement, Moderately Undermined, Foreign Material Removed, Wound Margins Revised, Multiple Flaps Aligned Closed With: Sutures Suture Size: 5-0 # of Sutures: 5 Suture Type: Prolene, Interrupted Left Elbow Lac/Wound Length In cm: 3 Appearance: Subcutaneous, Heavily Contaminated Distal NVT: Neuro & Vascular Intact, No Tendon Injury Anesthetic Type: Local Local Anesthesia - Lidocaine (Xylocaine): 1% Plain Local Anesthetic Volume: 3cc Skin Prep: Providone-Iodine (Betadine), Saline Saline Irrigation (cc's): 200 Exploration/Debridement/Repair: Wound Explored, In a Bloodless Field, Explored to Base, Minimal Debridement, Minimally Undermined, Foreign Material Removed, Wound Margins Revised Closed With: Sutures Suture Size: 5-0 # of Sutures: 5 Suture Type: Prolene Left Lower Arm Lac/Wound Length In cm: 3 (Multiple skin tears 2 to 3 cm each) Appearance: Subcutaneous, Heavily Contaminated Distal NVT: Neuro & Vascular Intact, No Tendon Injury Skin Prep: Saline Saline Irrigation (cc's): 200 Exploration/Debridement/Repair: Wound Explored Closed With: Wound Adhesive, Steri-Strips Course - Vital Signs Text/Narrative:: Tripped on steps, fall with closed head injury, ecchymosis, and multiple lacerations abrasions and skin tears to the forearms and hands. No acute trauma seen on CT head, CT neck and x-rays of the extremities. Wounds all significantly contaminated with dirt and gravel. After administration of local anesthesia, lidocaine, multiple wounds were explored, cleaned with saline, sterilized with Betadine and closed with sutures and Steri-Strips. See separate procedure notes for further detail. The patient tolerated well. Will cover with Keflex due to significant contamination of the wound. Discussed with patient need for follow-up with PCP in 7 days for suture removal or return to the ER sooner if any signs of infection. Last Recorded V/S: Last Vital Signs Temp 97.3 F 06/08/20 14:03 Pulse 75 06/08/20 15:27 Resp 14 06/08/20 15:27 BP 136/54 L 06/08/20 15:27 Pulse Ox 96 06/08/20 15:27 - Orders/Labs/Meds Meds: Medications Discontinued Medications Generic Name Dose Route Start Last Admin Trade Name Charu PRN Reason Stop Dose Admin Lidocaine HCl 5 ml 06/08/20 16:18 06/08/20 16:22 Xylocaine-Mpf 1% INJECT 06/08/20 16:19 5 ml ONETIME ONE Administration Octyl Cyanoacrylate 2 applic 06/08/20 18:27 Dermabond Advance TOP 06/08/20 18:28 ONETIME ONE - Re-Assessments/Exams Free Text/Narrative Re-Assessment/Exam: 06/08/20 19:12 Tolerated suturing and wound irrigation/cleanout well. Instructions all discussed with patient. Stable for discharge. Departure - Departure Time of Disposition: 19:13 Disposition: Home, Self-Care 01 Clinical Impression: Closed head injury, Laceration of left elbow, Laceration of right hand, Multiple skin tears - Discharge Information Instructions: Sterile Tape Wound Care, Head Injury, Adult, [id number], Laceration Care, Adult, [id number], Sutures, Valery, or Adhesive Wound Closure, [id number], Sutured Wound Care, [id number] Referrals: Key Menchaca MD [Primary Care Provider] - Forms: ED Department Discharge Additional Instructions: Please follow-up with your primary care physician or 1 of the primary clinics this is below in 7 days for suture removal. Return to the emergency department sooner if you have any bleeding or any signs of infection from the wounds. Keep the dressings on for 48 hours and keep the wounds clean and dry. Take the Keflex antibiotic twice daily as prescribed for 10 days to prevent infection of the wounds that were very contaminated. Drink plenty of fluids. If you develop any running symptoms, including any severe headache, neck pain, confusion, dizziness, lethargy, weakness or numbness of the arms or legs or any difficulty speaking you need to return to the emergency department immediately. The following information is given to patients seen in the emergency department who are being discharged to home. This information is to outline your options for follow-up care. We provide all patients seen in our emergency department with a follow-up referral. The need for follow-up, as well as the timing and circumstances, are variable depending upon the specifics of your emergency department visit. If you don't have a primary care physician on staff, we will provide you with a referral. We always advise you to contact your personal physician following an emergency department visit to inform them of the circumstance of the visit and for follow-up with them and/or the need for any referrals to a consulting specialist. The emergency department will also refer you to a specialist when appropriate. This referral assures that you have the opportunity for follow-up care with a specialist. All of these measure are taken in an effort to provide you with optimal care, which includes your follow-up. Under all circumstances we always encourage you to contact your private physician who remains a resource for coordinating your care. When calling for follow-up care, please make the office aware that this follow-up is from your recent emergency room visit. If for any reason you are refused follow-up, please contact the [facility] Emergency Department at and asked to speak to the emergency department charge nurse. [facility] - Primary Care [address] [place] [address] [id number] [address] [address] Sepsis Event Note (ED) - Evaluation Sepsis Screening Result: No Definite Risk - Focused Exam Vital Signs: Vital Signs Temp Pulse Resp BP Pulse Ox 06/08/20 15:27 75 14 136/54 L 96 06/08/20 14:03 97.3 F 83 18 155/74 H 97
--- NOTE | 2020-06-08 15:01 | CR ---
Left elbow: 3 views left elbow were obtained. Comparison: No prior elbow study. Joint spaces are maintained. No joint effusion is seen. No acute fracture, dislocation or other bony abnormality is appreciated. Impression: 1. No acute bony abnormality or joint effusion is seen. Diagnostic code #1 This report was dictated in MDT
--- NOTE | 2020-06-08 15:03 | CR ---
Addendum Order states left but this was dictated as a right hand exam. --- Addendum1 above dictated on [06/09/2020 15:43] by [Honey Brooks, Joe Laurent] --- --- Addendum1 above signed on [06/09/2020 15:45] by [Honey Brooks, Joe Laurent] --- --- Original report below dictated on [06/08/2020 13:59] by [Honey Brooks Hilton J.] --- --- Original report below signed on [06/08/2020 14:01] by [Honey Brooks, Joe Laurent] --- Right hand: 3 views of the right hand were obtained. Comparison: No previous hand study. Mild joint space narrowing is scattered within the MCP, DIP and PIP joints. Chondrocalcinosis is noted within the triangular fibrocartilage. Mild joint space narrowing is noted off the distal navicular bone. No acute fracture, dislocation or other bony abnormality is appreciated. Impression: 1. Mild degenerative change. 2. Nothing acute is seen. Diagnostic code #2 This report was dictated in MDT --- Addendum1 signed ---
--- NOTE | 2020-06-08 15:06 | CT ---
Head CT Technique: Multiple axial sections through the brain were obtained. Intravenous contrast was not utilized. Comparison: Prior head CT study of 04/08/20. Findings: Ventricles along with basal cisterns and sulci over the convexities are moderately prominent. Small old area of encephalomalacia is noted within the right frontal region. Minimal areas of diminished density is noted within portions of the periventricular white matter compatible with small vessel ischemic demyelination change. 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 No other abnormal parenchymal densities are seen. No evidence of intracranial hemorrhage. No midline shift or mass-effect is appreciated. Prior craniotomy is noted. No acute calvarial abnormality is seen. Visualized mastoid sinuses and visualized paranasal sinuses show nothing acute. Impression: 1. Prior craniotomy. Senescent change as noted above. 2. No acute intracranial abnormality is appreciated. Diagnostic code #2 This report was dictated in MDT
--- NOTE | 2020-06-08 15:09 | CR ---
Addendum: Order is marked as right hand but this this was a left hand exam and dictated as such. --- Addendum1 above dictated on [06/09/2020 15:44] by [Honey Brooks Hilton J.] --- --- Addendum1 above signed on [06/09/2020 15:45] by [Honey Brooks Hilton J.] --- --- Original report below dictated on [06/08/2020 14:07] by [Honey Brooks, Joe Laurent] --- --- Original report below signed on [06/08/2020 14:07] by [Honey Brooks, Joe Laurent] --- Left hand: 3 views of the left hand were obtained. Joint spaces are fairly well preserved. No fracture, dislocation or other bony abnormality is appreciated. Impression: 1. Nothing acute is seen on left hand exam. Diagnostic code #1 This report was dictated in MDT --- Addendum1 signed ---
--- NOTE | 2020-06-08 16:08 | CT ---
CT cervical spine Technique: Multiple axial sections through the cervical spine were obtained from above C1 inferiorly to the bottom of T4. Reconstructed sagittal and coronal images were obtained. Comparison: No prior cervical spine imaging is available. Findings: Degenerative change is noted between the dens and anterior arch of C1. Partial block vertebra is noted between C2 and C3. There is severe disc space narrowing at C3-4 with mild posterior osteophytes. Moderate to severe disc space narrowing at C4-5 with mild posterior osteophytes. Mild disc space narrowing at C5-6 and C6-7. Degenerative apophyseal change is noted which is most severe at C2-3 and C3-4 on the left side. Minimal left-sided neural foraminal stenosis noted at C3-4 and C4-5. Other neural foramina are patent. No central canal stenosis is seen. No fracture is identified. No abnormal subluxation is seen. Impression: 1. Degenerative change as described above. 2. Nothing acute is appreciated on CT study of the thoracic spine. Diagnostic code #2 This report was dictated in MDT
[2020-06-08] MEDS ORDERED: Octyl 2-Cyanoacrylate 1 Tube TOP ONE (18:27)
[2020-06-08] MEDS ORDERED: Cephalexin 500 MG Cap PO ONE (19:10)
--- NOTE | 2020-06-27 12:45 | CR ---
EXAM DATE: 06/08/20 PATIENT'S AGE: 85 Patient: BAKARI KIMBROUGH Facility: [facility] Site . Site : [id number] Study: XRay-Extremity Bilateral HANDS-06/08/2020 3:39:25 PM Ordering Physician: DR. HERRING Final Report: INDICATION: Bilateral hand injury. TECHNIQUE: Three views of each hand. COMPARISON: None. FINDINGS: No focal soft tissue swelling, fracture or subluxation. Mild polyarticular osteoarthritis. IMPRESSION: 1. Negative for acute traumatic abnormality. 2. Mild polyarticular osteoarthritis. Dictated by Cecil Cedillo MD @ Jun 27 2020 8:47AM Signed by: Cecil Cedillo MD @06/27/2020 8:54:30 AM (Electronic Signature) Report Signed by Proxy. [facility]
== END 2020-06-08 19:46 | disposition home or self-care (01) ==
LOC: MW.ED 13:59
DX: S09.90XA Unspecified injury of head, initial encounter (principal); S51.012A Laceration without foreign body of left elbow, initial encounter; S61.411A Laceration without foreign body of right hand, initial encounter; S61.412A Laceration without foreign body of left hand, initial encounter; S51.812A Laceration without foreign body of left forearm, initial encounter; S00.83XA Contusion of other part of head, initial encounter; E78.00 Pure hypercholesterolemia, unspecified; I10 Essential (primary) hypertension; Z88.8 Allergy status to other drugs, medicaments and biological substances; Z79.899 Other long term (current) drug therapy; W03.XXXA Other fall on same level due to collision with another person, initial encounter
CPT/HCPCS: 12004; 12034; 12042; 70450; 70450-26; 72125; 72125-26; 73080-26-LT; 73080-LT; 731302650; 73130-26-LT; 73130-26-RT; 73130-50; 73130-LT; 73130-RT; 99283; 99284-25; A9270-GY; J2001

== ENCOUNTER 2020-08-31 11:16 | Emergency (ER) | payer MEDICARE, BC ==
[2020-08-31] MEDS ORDERED: Bacitracin Oint 1 GM U/D Packet TOP ONE (11:56)
--- NOTE | 2020-08-31 12:01 | EDM.PDOC ---
ED HPI GENERAL MEDICAL PROBLEM - General Chief Complaint: General Stated Complaint: DIZZINESS Time Seen by Provider: 08/31/20 11:36 - History of Present Illness INITIAL COMMENTS - FREE TEXT/NARRATIVE: History of present illness: Patient presents with some headache and dizziness after falling and striking her head 2 days ago. Patient denies any blood thinners there is no loss of consciousness she has some mild dementia and was apparently walking into a restaurant on Saturday when she fell mechanically and struck her head she has contusions about the right temporal area with right periorbital ecchymosis. There is been no nausea or vomiting or fever no other concerns at this time she denies any shortness of breath cough fever chest pain difficulty breathing abdominal pain or any other symptoms. Review of systems: As per history of present illness and below otherwise all systems reviewed and negative. Past medical history: As per history of present illness and as reviewed below otherwise noncontributory. Surgical history: As per history of present illness and as reviewed below otherwise noncontributory. Social history: No reported history of drug or alcohol abuse. Family history: As per history of present illness and as reviewed below otherwise noncontributory. Physical exam: HEENT: Atraumatic, normocephalic, pupils reactive, negative for conjunctival pallor or scleral icterus, mucous membranes moist, throat clear, neck supple, nontender, trachea midline. Henok orbital ecchymosis on the right no extraocular muscle entrapment is noted there is contusion to the right temporal region. Lungs: Clear to auscultation, breath sounds equal bilaterally, chest nontender. Heart: S1S2, regular, negative for clicks, rubs, or JVD. Abdomen: Soft, nondistended, nontender. Negative for masses or hepatosplenom egaly. Negative for costovertebral tenderness. Pelvis: Stable nontender. Genitourinary: Deferred. Rectal: Deferred. Extremities: Atraumatic, negative for cords or calf pain. Neurovascular unremarkable. Neuro: Awake, alert, oriented. Cranial nerves II through XII unremarkable. Cerebellum unremarkable. Motor and sensory unremarkable throughout. Exam nonfocal. Alert interacting appropriately no pronator drift Diagnostics: [] Therapeutics: [] Impression: Head trauma [] Plan: To brain reassess [] Definitive disposition and diagnosis as appropriate pending reevaluation and review of above. - Related Data Allergies Allergy/AdvReac Type Severity Reaction Status Date / Time phenytoin sodium Allergy Unknown Verified 08/31/20 11:32 [From Dilantin] phenytoin sodium extended Allergy Unknown Verified 08/31/20 11:32 [From Dilantin] Home Meds: Home Meds Levothyroxine 25 mcg PO ACBREAKFAST 01/16/18 [History] Potassium Chloride 20 meq PO DAILY 01/16/18 [History] hydroCHLOROthiazide [Hydrochlorothiazide] 25 mg PO DAILY 01/16/18 [History] Simvastatin [Zocor] 1 tab PO DAILY 10/01/19 [History] Past Medical History Cardiovascular History: Reports: High Cholesterol, Hypertension - Infectious Disease History Infectious Disease History: Reports: Measles Social & Family History - Family History Family Medical History: Noncontributory - Tobacco Use Tobacco Use Status *Q: Former Tobacco User Used Tobacco, but Quit: Yes Month/Year Tobacco Last Used: 1950 - Caffeine Use Caffeine Use: Reports: Coffee, Soda, Tea - Recreational Drug Use Recreational Drug Use: No ED ROS GENERAL - Review of Systems Review Of Systems: See Below ED EXAM, GENERAL - Physical Exam Exam: See Below Course - Vital Signs Text/Narrative:: CT brain is negative she will be discharged home follow-up with primary care. Last Recorded V/S: Last Vital Signs Temp 35.8 C L 08/31/20 11:33 Pulse 69 08/31/20 11:33 Resp 18 08/31/20 11:33 BP 127/40 L 08/31/20 11:33 Pulse Ox 97 08/31/20 11:33 - Orders/Labs/Meds Meds: Medications Discontinued Medications Generic Name Dose Route Start Last Admin Trade Name Charu PRN Reason Stop Dose Admin Bacitracin 1 dose 08/31/20 11:56 Bacitracin Oint 1 Gm TOP 08/31/20 11:57 ONETIME ONE Departure - Departure Time of Disposition: 13:06 Disposition: DC/Tfer to SNF 03 Condition: Good Clinical Impression: Facial contusion, Head injury, Closed head injury Fall Qualifiers: Encounter type: initial encounter Qualified Code(s): W19.XXXA - Unspecified f all, initial encounter - Discharge Information *PRESCRIPTION DRUG MONITORING PROGRAM REVIEWED*: Not Applicable *COPY OF PRESCRIPTION DRUG MONITORING REPORT IN PATIENT KAN: Not Applicable Instructions: Head Injury, Adult, [id number], Contusion, [id number] Referrals: Tangri,Key, MD [Primary Care Provider] - Forms: ED Department Discharge Additional Instructions: The following information is given to patients seen in the emergency department who are being discharged to home. This information is to outline your options for follow-up care. We provide all patients seen in our emergency department with a follow-up referral. The need for follow-up, as well as the timing and circumstances, are variable depending upon the specifics of your emergency department visit. If you don't have a primary care physician on staff, we will provide you with a referral. We always advise you to contact your personal physician following an emergency department visit to inform them of the circumstance of the visit and for follow-up with them and/or the need for any referrals to a consulting specialist. The emergency department will also refer you to a specialist when appropriate. This referral assures that you have the opportunity for follow-up care with a specialist. All of these measure are taken in an effort to provide you with optimal care, which includes your follow-up. Under all circumstances we always encourage you to contact your private physician who remains a resource for coordinating your care. When calling for follow-up care, please make the office aware that this follow-up is from your recent emergency room visit. If for any reason you are refused follow-up, please contact the [facility] Emergency Department at and asked to speak to the emergency department charge nurse. Sepsis Event Note (ED) - Evaluation Sepsis Screening Result: No Definite Risk - Focused Exam Vital Signs: Vital Signs Temp Pulse Resp BP Pulse Ox 08/31/20 11:33 35.8 C L 69 18 127/40 L 97
--- NOTE | 2020-08-31 13:01 | CT ---
INDICATION: Fall 2 days ago, bruising around right eye TECHNIQUE: Head CT without contrast. COMPARISON: None FINDINGS: CSF spaces: Within normal limits for age. Brain parenchyma: Normal brannon-white junction no sign of mass, hemorrhage, or midline shift. Skull base and calvarium: Status post right frontal craniotomy the visualized paranasal sinuses and mastoid air cells demonstrate no acute or significant findings. The visualized orbits are grossly unremarkable. No skull fractures. IMPRESSION: No acute abnormality. Please note that all CT scans at this facility use dose modulation, iterative reconstruction, and/or weight-based dosing when appropriate to reduce radiation dose to as low as reasonably achievable. Dictated by Jennifer Bentley MD @ Aug 31 2020 1:00PM Signed by Dr. Jennifer Bentley @ Aug 31 2020 1:00PM
== END 2020-08-31 15:57 ==
LOC: MW.ED 11:16
DX: S09.90XA Unspecified injury of head, initial encounter (principal); S00.83XA Contusion of other part of head, initial encounter; I10 Essential (primary) hypertension; E78.00 Pure hypercholesterolemia, unspecified; Z87.891 Personal history of nicotine dependence; Z88.8 Allergy status to other drugs, medicaments and biological substances; Z79.899 Other long term (current) drug therapy; W22.8XXA Striking against or struck by other objects, initial encounter; Y93.01 Activity, walking, marching and hiking; Y92.511 Restaurant or cafe as the place of occurrence of the external cause
CPT/HCPCS: 70450; 70450-26; 99283; 99284-25

== ENCOUNTER 2021-05-09 10:31 | Emergency (ER) | payer MEDICARE, BC ==
[2021-05-09] MEDS ORDERED: Lidocaine 2% 5 ML SDV INJECT ONE (11:00)
[2021-05-09] MEDS ORDERED: Diphtheria,Pertussis(Acell),Tetanus Vaccine 0.5 ML Syringe IM ONE (11:00)
--- NOTE | 2021-05-09 11:14 | EDM.PDOC ---
ED HPI GENERAL MEDICAL PROBLEM - General Chief Complaint: Skin Complaint Stated Complaint: SKIN TEAR Time Seen by Provider: 05/09/21 10:49 Source of Information: Reports: Patient History Limitations: Reports: No Limitations - History of Present Illness INITIAL COMMENTS - FREE TEXT/NARRATIVE: Patient is an 86-year-old female who presents today for a laceration to her right elbow. Patient that she was walking and scraped her arm against a door latch. Patient not have any direct blows to the arm has good range of motion arm and no pain. Patient denies any injuries or other complaints at the moment. Patient is unsure of her last tetanus. right arm Pain Score (Numeric/FACES): 2 - Related Data Allergies Allergy/AdvReac Type Severity Reaction Status Date / Time phenytoin sodium Allergy Unknown Verified 05/09/21 10:49 [From Dilantin] phenytoin sodium extended Allergy Unknown Verified 05/09/21 10:49 [From Dilantin] Home Meds: Home Meds Levothyroxine 25 mcg PO ACBREAKFAST 01/16/18 [History] Potassium Chloride 20 meq PO DAILY 01/16/18 [History] hydroCHLOROthiazide [Hydrochlorothiazide] 25 mg PO DAILY 01/16/18 [History] Simvastatin [Zocor] 40 mg PO DAILY 10/01/19 [History] Citalopram [Citalopram HBr] 10 mg PO DAILY 05/09/21 [History] Past Medical History Cardiovascular History: Reports: High Cholesterol, Hypertension - Infectious Disease History Infectious Disease History: Reports: Measles Social & Family History - Family History Family Medical History: No Pertinent Family History - Tobacco Use Tobacco Use Status *Q: Never Tobacco User - Caffeine Use Caffeine Use: Reports: None - Recreational Drug Use Recreational Drug Use: No ED ROS GENERAL - Review of Systems Review Of Systems: See Below Constitutional: Reports: No Symptoms HEENT: Reports: No Symptoms Respiratory: Reports: No Symptoms Cardiovascular: Reports: No Symptoms Endocrine: Reports: No Symptoms GI/Abdominal: Reports: No Symptoms : Reports: No Symptoms Musculoskeletal: Reports: No Symptoms Skin: Reports: Other (laceration ) Neurological: Reports: No Symptoms Psychiatric: Reports: No Symptoms Hematologic/Lymphatic: Reports: No Symptoms Immunologic: Reports: No Symptoms ED EXAM, SKIN/RASH Exam: See Below Exam Limited By: No Limitations General Appearance: Alert, No Apparent Distress Eye Exam: Bilateral Eye: EOMI, PERRL Neck: Normal Inspection Respiratory/Chest: No Respiratory Distress Extremities: Normal Range of Motion, Non-Tender Neurological: Alert, Oriented, Normal Cognition, Normal Gait Skin: Other (laceration to right elbow) ED SKIN PROCEDURES - Laceration/Wound Repair Right Elbow Appearance: Superficial Distal NVT: Neuro & Vascular Intact Anesthetic Type: Local Local Anesthesia - Lidocaine (Xylocaine): 1% Plain Local Anesthetic Volume: 5cc Skin Prep: Providone-Iodine (Betadine) Saline Irrigation (cc's): 1,000 Closed with: Sutures Lac/Wound length In cm: 7 Suture Size: 5-0 # of Sutures: 8 Suture Type: Simple Course - Vital Signs Last Recorded V/S: Last Vital Signs Temp 97.1 F 05/09/21 10:51 Pulse 66 05/09/21 10:51 Resp 16 05/09/21 10:51 BP 134/66 05/09/21 10:51 Pulse Ox 97 05/09/21 10:51 - Orders/Labs/Meds Orders: Active Orders 24 hr Category Date Time Status Vaccines to be Administered [RC] PER UNIT ROUTINE Care 05/09/21 11:00 Active Meds: Medications Discontinued Medications Generic Name Dose Route Start Last Admin Trade Name Freq PRN Reason Stop Dose Admin Diphtheria/Tetanus/Acell Pertussis 0.5 ml 05/09/21 11:00 05/09/21 11:10 Diphtheria,Pertussis(Acell),Tetanus Vaccine 0.5 Ml Syringe IM 05/09/21 11:01 Not Given .ONCE ONE Lidocaine 5 ml 05/09/21 11:00 05/09/21 11:10 Lidocaine 2% 5 Ml Sdv INJECT 05/09/21 11:01 Not Given ONETIME ONE Lidocaine HCl Confirm 05/09/21 11:03 05/09/21 11:07 Lidocaine 1% 5 Ml Sdv Administered 05/09/21 11:04 Not Given Dose 5 ml .ROUTE .STK-MED ONE Lidocaine HCl 5 ml 05/09/21 11:07 05/09/21 11:08 Lidocaine 1% 5 Ml Sdv INJECT 05/09/21 11:08 5 ml ONETIME ONE Administration Octyl Cyanoacrylate 1 applic 05/09/21 11:41 Octyl 2-Cyanoacrylate 1 Tube TOP 05/09/21 11:42 ONETIME ONE Octyl Cyanoacrylate Confirm 05/09/21 11:42 Octyl 2-Cyanoacrylate 1 Tube Administered 05/09/21 11:43 Dose 1 applic .[facility]TE [facility] - Re-Assessments/Exams Free Text/Narrative Re-Assessment/Exam: 05/09/21 11:48 Patient laceration was repaired with 5-0 sutures approximately a line. Patient will return next 7 to 10 days have sutures removed. Departure - Departure Time of Disposition: 11:48 Disposition: Home, Self-Care 01 Condition: Good Clinical Impression: Laceration of elbow - Discharge Information *PRESCRIPTION DRUG MONITORING PROGRAM REVIEWED*: Not Applicable *COPY OF PRESCRIPTION DRUG MONITORING REPORT IN PATIENT KAN: Not Applicable Instructions: Laceration Care, Adult Referrals: PCP,None [Primary Care Provider] - Forms: ED Department Discharge Additional Instructions: The following information is given to patients seen in the emergency department who are being discharged to home. This information is to outline your options for follow-up care. We provide all patients seen in our emergency department with a follow-up referral. The need for follow-up, as well as the timing and circumstances, are variable depending upon the specifics of your emergency department visit. If you don't have a primary care physician on staff, we will provide you with a referral. We always advise you to contact your personal physician following an emergency department visit to inform them of the circumstance of the visit and for follow-up with them and/or the need for any referrals to a consulting s pecialist. The emergency department will also refer you to a specialist when appropriate. This referral assures that you have the opportunity for follow-up care with a specialist. All of these measure are taken in an effort to provide you with optimal care, which includes your follow-up. Under all circumstances we always encourage you to contact your private physician who remains a resource for coordinating your care. When calling for follow-up care, please make the office aware that this follow-up is from your recent emergency room visit. If for any reason you are refused follow-up, please contact the [facility] Emergency Department at and asked to speak to the emergency department charge nurse. Please follow up with your primary care physician. If you do not have a primary care physician, see below: [facility] [address] [place] [id number] My [facility] [address] [place] [address] You are seen today for laceration to your right elbow with a repaired with sutures. We also placed some Dermabond in the area that cannot be sutured up due to the skin being too thin. The sutures need to be removed in the next 7 to 10 days with a follow-up primary care physician or he cannot be seen there please return to the ED. We have attached some information on how to care for sutures at home please keep it dry for the first day otherwise you can get it wet but do not submerge in water. You have any increased pain or drainage to th e area please return to the ED. Sepsis Event Note (ED) - Evaluation Sepsis Screening Result: No Definite Risk - Focused Exam Vital Signs: Vital Signs Temp Pulse Resp BP Pulse Ox 05/09/21 10:51 97.1 F 66 16 134/66 97 - My Orders Last 24 Hours: My Active Orders 05/09/21 11:00 Vaccines to be Administered [RC] PER UNIT ROUTINE - Assessment/Plan Last 24 Hours: My Active Orders 05/09/21 11:00 Vaccines to be Administered [RC] PER UNIT ROUTINE Plan: Patient is 86-year-old female presents today for laceration to her right elbow. Will repair with sutures and likely discharge home. Patient also be given tetanus shot.
[2021-05-09] MEDS ORDERED: Octyl 2-Cyanoacrylate 1 Tube TOP ONE (11:41)
[2021-05-09] MEDS ORDERED: Octyl 2-Cyanoacrylate 1 Tube ONE (11:42)
== END 2021-05-09 12:05 | disposition home or self-care (01) ==
LOC: MW.ED 10:31
DX: S51.011A Laceration without foreign body of right elbow, initial encounter (principal); E78.00 Pure hypercholesterolemia, unspecified; I10 Essential (primary) hypertension; Z79.899 Other long term (current) drug therapy; Z88.8 Allergy status to other drugs, medicaments and biological substances; W22.8XXA Striking against or struck by other objects, initial encounter; Y93.01 Activity, walking, marching and hiking
CPT/HCPCS: 12002; 99282; A9270

== ENCOUNTER 2021-05-19 10:48 | Emergency (ER) | payer MEDICARE, BC | END 2021-05-19 11:15 | disposition left against medical advice (07) | LOC: MW.ED 10:48 | DX: Z48.02 Encounter for removal of sutures (principal) | CPT/HCPCS: 99281 ==

== ENCOUNTER 2021-06-30 13:26 | Emergency (ER) | payer MEDICARE, BC ==
[2021-06-30] MEDS ORDERED: Bacitracin Oint 1 GM U/D Packet TOP ONE (14:01)
--- NOTE | 2021-06-30 14:08 | EDM.PDOC ---
ED HPI GENERAL MEDICAL PROBLEM - General Chief Complaint: Upper Extremity Injury/Pain Stated Complaint: FELL OUTSIDE ANIMAL FPC/HURT ARM AND KNEES Time Seen by Provider: 06/30/21 13:58 Source of Information: Reports: Patient History Limitations: Reports: No Limitations - History of Present Illness INITIAL COMMENTS - FREE TEXT/NARRATIVE: HISTORY AND PHYSICAL: History of present illness: Patient is an 86-year-old female who presents to the emergency room with her caregiver with complaints of a skin tear and pain to her right elbow. Caregiver states that [place] she tripped over a curb hitting her left elbow and knee. This was witnessed by the caregiver. Patient did not hit her head or have any loss of consciousness. She has an abrasion to her right knee although is able to ambulate without any difficulty. She has a large skin tear over the right elbow with mild pain. Patient denies any fever, chills, headache, change in vision, syncope or near syncope. Denies any chest pain, back pain, shortness of breath or cough. Denies any GI or symptoms. Review of systems: As per history of present illness and below otherwise all systems reviewed and negative. Past medical history: As per history of present illness and as reviewed below otherwise noncontributory. Surgical history: As per history of present illness and as reviewed below otherwise noncontributory. Social history: See social history for further information Family history: As per history of present illness and as reviewed below otherwise noncon tributory. Physical exam: General: Well developed and well nourished 86-year-old female. Alert and orientated x 3. Nontoxic in appearance and in no acute distress. Vital signs are stable and have been reviewed by me. Nursing notes were reviewed. HEENT: Atraumatic, nontender, no obvious injury, normocephalic, pupils equal and reactive bilaterally, negative for conjunctival pallor or scleral icterus, mucous membranes moist, trachea midline. No drooling or trismus noted. No meningeal signs. No hot potato voice noted. Lungs: Clear to auscultation bilaterally. No wheezes, rales, or rhonchi. Chest nontender. Normal work of breathing, no accessory muscles used. Heart: S1S2, regular rate and rhythm without overt murmur, gallops, or rubs. No JVD. No peripheral edema Abdomen: Soft, nondistended, nontender. Normoactive bowel sounds. Negative for masses or costovertebral tenderness. Pelvis: Stable nontender. C-spine/Back: No pinpoint vertebral tenderness upon palpation. No crepitus, step-offs or obvious deformities. Patient is ambulatory into the emergency room without difficulty or deficit. Able to rock back on heels and walk on toes. Denies any urinary or fecal incontinence. Denies any numbness, tingling or saddle paresthesia. No concerns of serious infection, fracture or cord compression, or cauda equina syndrome. Deep tendon reflexes brisk bilaterally. Skin: Abrasion to right knee. Large skin tear measuring approximately 7cm diameter to right elbow. No active bleeding. Remaining skin is intact, warm, dry. No lesions or rashes noted. Hematologic: No petechiae or purpra. Mucosa appropriate color and normal nail bed color and refill. Extremities: See SKIN for details. She moves all extremities per self without difficulty or deficits, negative for cords or calf pain. She does have mild pain with palpation over the right elbow, more so where the skin tear is rather than bony prominence. No knee instability, negative drawer test. Strong distal pulses bilaterally. Neurovascular unremarkable. Neuro: Awake, alert, oriented. Cranial nerves II through XII unremarkable. Cerebellum unremarkable. Motor and sensory unremarkable throughout. Exam nonfocal. Psychiatric: Mood and affect are appropriate. Normal thought process. Answering questions appropriately. Notes: *This patient was seen and evaluated during the 2019 SARS-CoV-2 novel coronavirus pandemic period. Community viral transmission is ongoing at time of this encounter and the emergency department is operating under pandemic response procedures. The skin tear of the right elbow is not suturable. We did cleanse with chlorhexidine and wound wash. Bacitracin nonstick dressing was applied. Patient tolerated well. X-ray shows no acute bony abnormality. We reviewed and discussed signs and symptoms of infection that would prompt her to seek further evaluation. Patient did request to have a urine done today as she has had some dysuria and frequency. She does have 0-3 WBCs and few bacteria. We will place her on Keflex as this is good for skin coverage with her skin tear as well. I have talked with the patient about today's findings, in addition to providing specific details for plan of care. Reassessment at the time of disposition demonstrates that the patient is in no acute distress. The patient is stable for discharge, counseling was provided and we discussed in great detail signs and symptoms that would prompt them to return to the Emergency Department. Medication, follow up and supportive care measures were reviewed and discussed. Voices understanding and is agreeable to plan of care. Denies any further questions or concerns at this time. Diagnostics: Elbow x-ray Therapeutics: Wound care, bacitracin, nonstick dressing Prescription: Keflex Impression: Fall Abrasion, right knee Skin tear, right elbow UTI Plan: 1. You were evaluated today on an emergent basis. Your x-ray shows no acute findings. Keep the skin clean and dry. Continue to monitor for signs of infection. Rest, ice, elevate the elbow area as able. 2. You can alternate Tylenol and ibuprofen as needed for pain and fever management. 3. We encourage you to follow up with your primary care provider in the next few days for re-evaluation and further care/management. 4. If your symptoms should worsen, new symptoms develop or any of the signs and symptoms we discussed should arise please return to the emergency room or call 911 (if needed). Definitive disposition and diagnosis as appropriate pending reevaluation and review of above. Right forearm Pain Score (Numeric/FACES): 4 - Related Data Allergies Allergy/AdvReac Type Severity Reaction Status Date / Time phenytoin sodium Allergy Unknown Verified 06/30/21 14:33 [From Dilantin] phenytoin sodium extended Allergy Unknown Verified 06/30/21 14:33 [From Dilantin] Home Meds: Home Meds Levothyroxine 25 mcg PO ACBREAKFAST 01/16/18 [History] Potassium Chloride 20 meq PO DAILY 01/16/18 [History] hydroCHLOROthiazide [Hydrochlorothiazide] 25 mg PO DAILY 01/16/18 [History] Simvastatin [Zocor] 40 mg PO DAILY 10/01/19 [History] Citalopram [Citalopram HBr] 10 mg PO DAILY 05/09/21 [History] cephALEXin [Keflex] 500 mg PO BID 7 Days #14 cap 06/30/21 [Rx] Past Medical History Cardiovascular History: Reports: High Cholesterol, Hypertension - Infectious Disease History Infectious Disease History: Reports: Measles Social & Family History - Family History Family Medical History: No Pertinent Family History - Caffeine Use Caffeine Use: Reports: None Review of Systems - Review of Systems Review Of Systems: Comprehensive ROS is negative, except as noted in HPI. ED EXAM, GENERAL - Physical Exam Exam: See Below (See dictation) Course - Vital Signs Last Recorded V/S: Last Vital Signs Temp 96.8 F L 06/30/21 14:02 Pulse 76 06/30/21 14:02 Resp 15 06/30/21 14:02 BP 152/68 H 06/30/21 14:02 Pulse Ox 97 06/30/21 14:02 - Orders/Labs/Meds Orders: Active Orders 24 hr Category Date Time Status Communication Order [RC] STAT Care 06/30/21 14:02 Active CULTURE URINE [MREF] Stat Lab 06/30/21 15:07 Received Labs: Laboratory Tests 06/30/21 Range/Units 15:07 Urine Color YELLOW Urine Appearance SLT CLOUDY Urine pH 6.0 (5.0-8.0) Ur Specific [place] 1.020 (1.001-1.035) Urine Protein NEGATIVE (NEGATIVE) mg/dL Urine Glucose (UA) NEGATIVE (NEGATIVE) mg/dL Urine Ketones NEGATIVE (NEGATIVE) mg/dL Urine Occult Blood TRACE-INTACT H (NEGATIVE) Urine Nitrite NEGATIVE (NEGATIVE) Urine Bilirubin NEGATIVE (NEGATIVE) Urine Urobilinogen 0.2 (<2.0) EU/dL Ur Leukocyte Esterase SMALL H (NEGATIVE) Urine RBC 0-1 (0-2/HPF) Urine WBC 0-3 (0-5/HPF) Ur Epithelial Cells FEW (NONE-FEW) Urine Bacteria FEW (NEGATIVE) Meds: Medications Discontinued Medications Generic Name Dose Route Start Last Admin Trade Name Severoq PRN Reason Stop Dose Admin Bacitracin 1 dose 06/30/21 14:01 06/30/21 14:31 Bacitracin Oint 1 Gm U/D Packet TOP 06/30/21 14:02 1 dose ONETIME ONE Administration Departure - Departure Time of Disposition: 15:31 Disposition: Home, Self-Care 01 Clinical Impression: Skin tear, Abrasion Fall Qualifiers: Encounter type: initial encounter Qualified Code(s): W19.XXXA - Unspecified fall, initial encounter UTI (urinary tract infection) Qualifiers: Urinary tract infection type: site unspecified Hematuria presence: without hematuria Qualified Code(s): N39.0 - Urinary tract infection, site not specified - Discharge Information Prescriptions: cephALEXin [Keflex] 500 mg PO BID 7 Days #14 cap Instructions: Abrasion, [id number] Referrals: PCP,Unknown [Primary Care Provider] - Forms: ED Department Discharge Additional Instructions: The following information is given to patients seen in the emergency department who are being discharged to home. This information is to outline your options for follow-up care. We provide all patients seen in our emergency department with a follow-up referral. The need for follow-up, as well as the timing and circumstances, are variable depending upon the specifics of your emergency department visit. If you don't have a primary care physician on staff, we will provide you with a referral. We always advise you to contact your personal physician following an emergency department visit to inform them of the circumstance of the visit and for follow-up with them and/or the need for any referrals to a consulting specialist. The emergency department will also refer you to a specialist when appropriate. This referral assures that you have the opportunity for follow-up care with a specialist. All of these measure are taken in an effort to provide you with optimal care, which includes your follow-up. Under all circumstances we always encourage you to contact your private physician who remains a resource for coordinating your care. When calling for follow-up care, please make the office aware that this follow-up is from your recent emergency room visit. If for any reason you are refused follow-up, please contact the [facility] Emergency Department at and asked to speak to the emergency department charge nurse. [facility] [address] [place] [id number] [address] Thank you for choosing the [facility] emergency department in [place] for your medical needs today. It was a pleasure caring for you. Today you were seen in the emergency department for fall and skin tear. 1. You were evaluated today on an emergent basis. Your x-ray shows no acute findings. Keep the skin clean and dry. Continue to monitor for signs of infection. Rest, ice, elevate the elbow area as able. 2. You can alternate Tylenol and ibuprofen as needed for pain and fever management. 3. We encourage you to follow up with your primary care provider in the next few days for re-evaluation and further care/management. 4. If your symptoms should worsen, new symptoms develop or any of the signs and symptoms we discussed should arise please return to the emergency room or call 911 (if needed). Sepsis Event Note (ED) - Focused Exam Vital Signs: Vital Signs Temp Pulse Resp BP Pulse Ox 06/30/21 14:02 96.8 F L 76 15 152/68 H 97 - My Orders Last 24 Hours: My Active Orders 06/30/21 14:02 Communication Order [RC] STAT 06/30/21 15:07 CULTURE URINE [MREF] Stat - Assessment/Plan Last 24 Hours: My Active Orders 06/30/21 14:02 Communication Order [RC] STAT 06/30/21 15:07 CULTURE URINE [MREF] Stat
--- NOTE | 2021-06-30 14:57 | CR ---
Indication: Fall to ground Technique: Three views of the right elbow Comparison: None Findings: The visualized distal humerus and proximal radius and ulna appear intact. The elbow joint is anatomically aligned. There is no appreciable joint effusion. Mild subcutaneous edema is noted in the proximal forearm. Impression: No acute osseous abnormality. Dictated by Germaine Parker MD @ 06/30/2021 2:57:[address] Germaine Parker @ Jun 30 2021 2:57PM
== END 2021-06-30 15:38 | disposition home or self-care (01) ==
LOC: MW.ED 13:26
DX: S51.011A Laceration without foreign body of right elbow, initial encounter (principal); S80.211A Abrasion, right knee, initial encounter; N39.0 Urinary tract infection, site not specified; E78.00 Pure hypercholesterolemia, unspecified; I10 Essential (primary) hypertension; Z88.5 Allergy status to narcotic agent; Z79.899 Other long term (current) drug therapy; W01.198A Fall on same level from slipping, tripping and stumbling with subsequent striking against other object, initial encounter
CPT/HCPCS: 73080-26-RT; 73080-RT; 81001; 87086; 99283-25

== ENCOUNTER 2022-05-30 08:12 | Emergency (ER) | payer MEDICARE, BC | END 2022-05-30 09:42 | disposition home or self-care (01) | LOC: MW.ED 08:12 | DX: U07.1 COVID-19 (principal); S41.102A Unspecified open wound of left upper arm, initial encounter; E78.00 Pure hypercholesterolemia, unspecified; I10 Essential (primary) hypertension; Z88.8 Allergy status to other drugs, medicaments and biological substances; Z79.899 Other long term (current) drug therapy; W01.0XXA Fall on same level from slipping, tripping and stumbling without subsequent striking against object, initial encounter | CPT/HCPCS: 71045; 71045-26; 99283 ==

== ENCOUNTER 2022-06-03 14:54 | Emergency (ER) | payer MEDICARE, BC ==
[2022-06-03 15:36] LABS: BLOOD UREA NITROGEN,BUN 28 mg/dL (7.0-18.0); CARBON DIOXIDE,CO2 26.5 mmol/L (21.0-32.0); CHLORIDE,CL 101 mmol/L (98-107); GLUCOSE RANDOM 127 mg/dL (74-106); LIPASE 152 U/L (73-393); POTASSIUM,K 4.2 mmol/L (3.5-5.1); SODIUM,NA 138 mmol/L (136-145)
[2022-06-03 15:41] LABS: ESTIMATED GFR 36 mL/min (>60)
== END 2022-06-03 17:46 | disposition home or self-care (01) ==
LOC: MW.ED 14:54
DX: R10.84 Generalized abdominal pain (principal); E78.00 Pure hypercholesterolemia, unspecified; I10 Essential (primary) hypertension; Z88.8 Allergy status to other drugs, medicaments and biological substances; Z79.899 Other long term (current) drug therapy; Z86.16 Personal history of COVID-19
CPT/HCPCS: 36415; 74176; 74176-26; 80053; 81001; 83605; 83690; 83735; 84484; 85025; 86140; 99284

== ENCOUNTER 2022-09-14 11:04 | Emergency (ER) | payer MEDICARE, BC ==
[2022-09-14] MEDS ORDERED: Sodium Chloride 0.9% 2.5 ML Syringe FLUSH PRN (14:08)
[2022-09-14] MEDS ORDERED: Sodium Chloride 0.9% 10 ML Syringe FLUSH PRN (14:08)
[2022-09-14] MEDS ORDERED: Sodium Chloride 0.9% 500 ML IV STA (16:01)
[2022-09-14 16:10] LABS: POTASSIUM,K 4.6 mmol/L (3.5-5.1)
== END 2022-09-14 18:34 | disposition home or self-care (01) ==
LOC: MW.ED 11:04
DX: N39.0 Urinary tract infection, site not specified (principal); E78.00 Pure hypercholesterolemia, unspecified; I10 Essential (primary) hypertension; E03.9 Hypothyroidism, unspecified; Z88.8 Allergy status to other drugs, medicaments and biological substances; Z79.899 Other long term (current) drug therapy
CPT/HCPCS: 36415; 70450; 71045; 80053; 81001; 83735; 84484; 85025; 85610; 93005; 96360; 96361; 99284; J3490; J7040